=== PATIENT | female | born 1990 | race Caucasian/White ===

== ENCOUNTER 2021-03-01 18:03 | Emergency (ER) | payer OTHER ==
[~2021-03-01] VITALS: Ht 167.6 cm; Wt 90.0 kg
[2021-03-01 18:05] VITALS: TEMP 99.3
[2021-03-01 19:08] VITALS: BP 113/92; PULSE 80
== END 2021-03-01 19:12 | disposition home or self-care (01) ==
LOC: COL.ER 18:03
DX: S93.401A Sprain of unspecified ligament of right ankle, initial encounter (principal); X50.0XXA Overexertion from strenuous movement or load, initial encounter; Y93.68 Activity, volleyball (beach) (court)